=== PATIENT | male | born 1945 | race Caucasian/White ===

== ENCOUNTER 2021-02-21 20:51 | Observation (INO) ==
[2021-02-21] MEDS ORDERED: ASPIRIN 325 MG TABLET PO STA (21:09)
[2021-02-21] MEDS ORDERED: ASPIRIN CHEW 81 MG TABLET PO ONE (21:17)
[2021-02-21] MEDS ORDERED: ASPIRIN CHEW 81 MG TABLET PO STA (21:17)
[2021-02-21 22:10] LABS: Basophils # 0.1 10*3/uL (0.0-0.2); Basophils % 0.7 % (0.0-0.8); Eosinophils # 0.2 10*3/uL (0.0-0.87); Eosinophils % 2.5 % (0.00-10.9); Hematocrit 35.3 VOL% (42.0-52.0); Immature Granulocytes % 0.6 %; Immature Granulocytes Absolute 0.04 #; Lymphocytes # 1.5 10*3/uL (1.4-4.0); Lymphocytes % 22.3 % (21.2-54.2); Mean Corpuscular HGB Conc 31.2 GM/DL (32-36); Mean Corpuscular Volume 94.1 FL (87-102); Mean Platelet Volume 10.7 FL (9.6-12.0); Monocytes % 4.4 % (1.7-12.7); Neutrophils % 69.5 % (38.7-73.9); Platelet Count 177 T/CUMM (130-400); Red Blood Count 3.75 MC/CUMM (3.8-5.5); Red Cell Distribution Width 15.3 % (9.3-17.3); White Blood Count 6.8 T/CUMM (4-12)
[2021-02-21 22:24] LABS: Bilirubin,Total 0.4 MG/DL (0.20-1.00); Calcium 8.5 MG/DL (8.5-10.1); Osmolality,Calculated 288.4 MOS/KG (273-304); Potassium 4.1 MMOL/L (3.5-5.1); Total Protein 6.6 G/DL (6.4-8.2)
[2021-02-21] MEDS ORDERED: NITROGLYCERIN SL 0.4 MG TABLET SL PRN (22:35)
[2021-02-22] MEDS ORDERED: MORPHINE 2 MG/1 ML SYRINGE IV PRN (00:02)
[2021-02-22] MEDS ORDERED: ONDANSETRON 4 MG/2 ML VIAL IV PRN (00:02)
[2021-02-22] MEDS ORDERED: diphenhydrAMINE CAP 25 MG CAPSULE PO PRN (00:02)
[2021-02-22] MEDS ORDERED: hydrALAZINE 20 MG/1 ML VIAL IV PRN (00:02)
[2021-02-22] MEDS ORDERED: NICOTINE 21 MG/24 HR PATCH TRANSDERM PRN (00:02)
[2021-02-22] MEDS ORDERED: guaiFENesin/DM ER 600-30 MG TABLET PO PRN (00:02)
[2021-02-22] MEDS ORDERED: ZALEPLON 5 MG CAPSULE PO PRN (00:02)
[2021-02-22] MEDS ORDERED: DEXTROSE 50% 25 GM/50 ML VIAL IV PRN ×3 (00:02→00:10)
[2021-02-22] MEDS ORDERED: GLUCAGON 1 MG VIAL IM PRN ×2 (00:02)
[2021-02-22] MEDS ORDERED: ACETAMINOPHEN 325 MG TABLET PO PRN (00:02)
[2021-02-22] MEDS ORDERED: HEPARIN 5,000 UNIT/1 ML VIAL SUBCUT SCH (00:30)
[2021-02-22] MEDS: ALBUTEROL/IPRATROPIUM 3 ML NEB RESP TX SCH ×3 (04:00→07:37)
[2021-02-22 04:32] LABS: Basophils % 0.6 % (0.0-0.8); Eosinophils # 0.2 10*3/uL (0.0-0.87); Eosinophils % 2.9 % (0.00-10.9); Hematocrit 36.5 VOL% (42.0-52.0); Hemoglobin 11.3 GM/DL (14.0-18.0); Immature Granulocytes % 0.5 %; Immature Granulocytes Absolute 0.03 #; Lymphocytes # 2.1 10*3/uL (1.4-4.0); Lymphocytes % 31.8 % (21.2-54.2); Mean Corpuscular Volume 94.3 FL (87-102); Mean Platelet Volume 10.9 FL (9.6-12.0); Neutrophils % 57.2 % (38.7-73.9); Platelet Count 178 T/CUMM (130-400); Red Blood Count 3.87 MC/CUMM (3.8-5.5); Red Cell Distribution Width 15.4 % (9.3-17.3); White Blood Count 6.5 T/CUMM (4-12)
[2021-02-22 04:50] LABS: Calcium 8.6 MG/DL (8.5-10.1); Osmolality,Calculated 286.3 MOS/KG (273-304); Potassium 4.5 MMOL/L (3.5-5.1)
[2021-02-22] MEDS ORDERED: busPIRone 10 MG TABLET PO PRN (08:08)
[2021-02-22] MEDS ORDERED: SIMVASTATIN 10 MG TABLET PO SCH ×2 (09:00→21:00)
[2021-02-22] MEDS ORDERED: cilostazoL 50 MG TABLET PO SCH (09:00)
[2021-02-22] MEDS ORDERED: sitaGLIPtin 25 MG TABLET PO SCH (09:00)
[2021-02-22] MEDS ORDERED: BUDESONIDE/FORMOTEROL 160-4.5 INHALER 6 GM INH SCH (09:00)
[2021-02-22] MEDS ORDERED: GABAPENTIN 100 MG CAPSULE PO SCH (09:00)
[2021-02-22] MEDS ORDERED: ASPIRIN EC 81 MG TABLET PO SCH (09:00)
[2021-02-22] MEDS ORDERED: ACETAMINOPHEN 325 MG TABLET PO SCH (09:00)
[2021-02-22] MEDS ORDERED: MAGNESIUM CHLORIDE 64 MG TABLET PO SCH (09:00)
[2021-02-22] MEDS ORDERED: PANTOPRAZOLE 40 MG TABLET PO SCH (09:00)
[2021-02-22] MEDS ORDERED: TICAGRELOR 90 MG TABLET PO SCH (09:00)
[2021-02-22] MEDS ORDERED: carvediloL 25 MG TABLET PO SCH (09:00)
[2021-02-22] MEDS ORDERED: LOSARTAN 50 MG TABLET PO SCH (09:00)
[2021-02-22] MEDS: INSULIN LISPRO 100 UNIT/ML SUBCUT SCH ×2 (09:31→13:03)
[2021-02-22 13:03] VITALS: BP 143/67
[2021-02-22] MEDS ORDERED: GABAPENTIN 300 MG CAPSULE PO SCH ×3 (15:00→21:00)
[2021-02-22] MEDS ORDERED: busPIRone 10 MG TABLET PO SCH (15:00)
[2021-02-22] MEDS ORDERED: TAMSULOSIN 0.4 MG CAPSULE PO SCH (21:00)
[2021-02-22] MEDS ORDERED: ROSUVASTATIN 20 MG TABLET PO SCH (21:00)
== END 2021-02-22 13:44 | disposition home or self-care (01) ==
LOC: N.EDINP 20:51 → N.ED 20:51 → N.TELEN 02-22 00:44
PROVIDERS: ADMIT Internal Medicine; ATTEND Internal Medicine